=== PATIENT | male | born 1980 | race Caucasian/White ===

== ENCOUNTER 2017-03-17 19:10 | Emergency (ER) | payer SELFPAY ==
[2016-04-05 16:50] VITALS: BMI 27.3
[~2017-03-17 19:10] MED LIST: BACTRIM DS TABL1 TAB PO; CYCLOBENZAPRINE10 MG PO; HYDROCODONE-APA1 TAB PO; PERCOCET 10/3251 TA1 PO
== END 2017-03-17 22:36 | disposition home or self-care (01) ==
LOC: D.ER 19:10
DX: S81.012A Laceration without foreign body, left knee, initial encounter (principal); V09.20XA Pedestrian injured in traffic accident involving unspecified motor vehicles, initial encounter

== ENCOUNTER 2017-03-26 08:46 | Emergency (ER) | payer SELFPAY ==
[2016-04-05 16:50] VITALS: BMI 27.3
== END 2017-03-26 10:48 | disposition home or self-care (01) ==
LOC: D.ER 08:46
DX: S39.012A Strain of muscle, fascia and tendon of lower back, initial encounter (principal); X58.XXXA Exposure to other specified factors, initial encounter; Y93.89 Activity, other specified; Y92.89 Other specified places as the place of occurrence of the external cause

== ENCOUNTER 2018-11-25 20:57 | Emergency (ER) | payer MEDICAID ==
[~2018-11-25] VITALS: Ht 175.3 cm; Wt 90.9 kg
[2018-11-25 20:59] VITALS: Ht 175.3 cm; Wt 90.9 kg
[2018-11-25] MEDS ORDERED: DILANTIN100 MG (21:05)
[2018-11-25] MEDS ORDERED: BP MED (21:05)
[2018-11-25 21:50] LABS: BASOPHILS 0.3 % (0-2); EOSINOPHILS 0.3 % (0-7); HEMOGLOBIN 14.4 g/dL (13.5-17.5); IMMATURE GRANULOCYTES 0.8 % (0-5); LYMPHOCYTES 33.7 % (15-50); MCH 29.1 pg (26.0-34.0); MCHC 34.3 g/dL (31.0-37.0); MONOCYTES 6.8 % (2-11); NEUTROPHILS 58.1 % (40-80); PLATELET COUNT 184 10x3/uL (130-400); RBC 4.94 10x6/uL (4.20-6.10); RDW 14.2 % (11.5-14.5); WBC 6.2 10x3/uL (4.8-10.8)
[2018-11-25 22:01] LABS: APPEARANCE CLEAR (CLEAR); BILIRUBIN NEGATIVE (NEGATIVE); COLOR STRAW (YELLOW); GLUCOSE NEGATIVE (NEGATIVE); KETONE NEGATIVE (NEGATIVE); NITRITE NEGATIVE (NEGATIVE); PROTEIN NEGATIVE (NEGATIVE); SPECIFIC GRAVITY 1.005 (1.005-1.020); UROBILINOGEN NORMAL (NORMAL)
[2018-11-25 22:06] LABS: UDS - AMPHET NEGATIVE QUAL (NEGATIVE); UDS - BARB NEGATIVE QUAL (NEGATIVE); UDS - BENZO NEGATIVE QUAL (NEGATIVE); UDS - COCAINE NEGATIVE QUAL (NEGATIVE); UDS - OPIATE NEGATIVE QUAL (NEGATIVE); UDS - PCP NEGATIVE QUAL (NEGATIVE); UDS - THC NEGATIVE QUAL (NEGATIVE)
[2018-11-25 22:15] LABS: ALBUMIN 3.8 g/dL (3.4-5.0); ALKALINE PHOSPHATASE 84 U/L (46-116); ALT (SGPT) 26 U/L (10-68); BILIRUBIN - TOTAL 0.16 mg/dL (0.2-1.3); CALC OSMOLALITY 281 mosm/kg (275-300); CALCIUM 8.6 mg/dL (8.5-10.1); CARBON DIOXIDE 30.5 mmol/L (21.0-32.0); CHLORIDE - SERUM 105 mmol/L (98-107); CREATININE - SERUM 1.1 mg/dL (0.6-1.3); GLUCOSE 96 mg/dL (74-106); MAGNESIUM - SERUM 2.3 mg/dL (1.8-2.4); POTASSIUM - SERUM 4.4 mmol/L (3.5-5.1); PROTEIN - SERUM 8.1 g/dL (6.4-8.2); SODIUM 142 mmol/L (136-145); UREA NITROGEN 9 mg/dL (7-18); eGFR NON AFRICAN AMERICAN 80 mL/min (90-120)
[2018-11-25 22:18] LABS: PHENYTOIN (DILANTIN) < 10.0 ug/mL (10.0-20.0)
[2018-11-26 01:00] VITALS: BP 130/70
== END 2018-11-26 01:00 | disposition home or self-care (01) ==
LOC: D.ER 20:57
PROVIDERS: Family Medicine
DX: G40.909 Epilepsy, unspecified, not intractable, without status epilepticus (principal); S00.219A Abrasion of unspecified eyelid and periocular area, initial encounter; W18.30XA Fall on same level, unspecified, initial encounter; Y93.89 Activity, other specified; Y92.89 Other specified places as the place of occurrence of the external cause; Z72.89 Other problems related to lifestyle; R51 Headache; Z91.14 Patient's other noncompliance with medication regimen

== ENCOUNTER 2019-08-07 05:08 | Day surgery (SDC) | payer OTHER ==
[~2019-08-07] VITALS: Ht 177.8 cm; Wt 108.9 kg
[~2019-08-07 05:08] MED LIST changes: +ABILIFY10 MG PO; +BP MED; +DILANTIN100 MG; +GEODON40 MG PO; +KLONOPIN1 MG; +NORVASC10 MG PO; +PRINIVIL10 MG PO; +SEROQUEL400 MG PO; +TEGRETOL200 MG PO; +TOFRANIL50 MG PO
[2019-08-07 06:11] LABS: HEMATOCRIT 38.9 % (42.0-54.0); HEMOGLOBIN 13.2 g/dL (13.5-17.5); MCH 30.1 pg (26.0-34.0); MCHC 33.9 g/dL (31.0-37.0); MCV 88.8 fL (80.0-100.0); MEAN PLATELET VOLUME 9.8 fL (7.4-10.4); RBC 4.38 10x6/uL (4.20-6.10); RDW 12.6 % (11.5-14.5)
[2019-08-07 06:48] VITALS: BP 131/78; Ht 177.8 cm; Wt 108.9 kg
--- NOTE | 2019-08-07 09:30 | NUR ---
PATIENT DELAY GOING TO THE ROOM 10 MINUTES DUE TO ARM BAND AND ALLERGY BAND BEING PLACED ON OPERATIVE ARM. SHAKE TABLE OPERATOR REMOVED AND REPOSITIONED ARMABANDS TO NONOPERATIVE ARM. MARÍA ELENA ROBERTS RN NURSE RESTAURANT RECRUITER NOTIFIED.
[2019-08-07] MEDS ORDERED: DILAUDID4 MG PO (09:31)
--- NOTE | 2019-08-07 10:18 | NUR ---
MEETS ANESTHESIA DISCHARGE CRITERIA
--- NOTE | 2019-08-07 10:43 | NUR ---
1030-REC'D FROM RR. DROWSY, EASILY AROUSED WITH VERBAL STIMULI. REPORTS PAIN WITH SLURRED/DROWSY LIKE SPEECH 05/10; HOWEVER NO FACILA GRIMICING, PT IS NOT FULLY AWAKE FROM SUREGERY AT THIS TIME. VSS. FAMMILY AT BEDSIDE. CL IN EASY REACH. ICE PACK TO SHOULDER AND RIGHT EXTREMITY ELEVATED ON PILLOW. CAP REFILL WNL, SKIN WARM AND DRY, ABLE TO WIGGLE DIGITS, REPORTS "IS NUMB"
--- NOTE | 2019-08-07 10:45 | NUR ---
1040-FULL LIQUID TRAY TO ROOM. PT IS AWAKE AND ALERT.CL IN EASY REACH WITH FAMILY AT BEDSIDE.
--- NOTE | 2019-08-07 11:18 | NUR ---
1115-NOTIFIED ANESTHESIA WITH PAIN 05/10 WITH OBVIOUS FACIAL GRIMICING AT THIS TIME AND ELEVATED BLOOD PRESSURE. SEE VITAL SIGNS. AWAKE AND ALERT. TOLERATED FULL LIQUID TRAY. CL IN EASY REACH,FAMILY AT BEDSIDE
--- NOTE | 2019-08-07 11:19 | NUR ---
NO NEW T.O ORDERS PER ANESTHESIA. WILL NOTIFY VINCE TO COME ASSESS PT
--- NOTE | 2019-08-07 11:52 | NUR ---
1152-SPOKE WITH ANESTHESIA, CELSA, NEW ORDER REC'D TO ADMINISTER LABETOLOL 5MG IVP.
--- NOTE | 2019-08-07 15:35 | NUR ---
1245-NOTIFIED DR. DAWKINS OF PTS BLOOD PRESSURE CONTINUE TO BE ELEVATED AFTER LEBETALOL 5MG IVP AND PT CONTINUE TO VERBALIZE PAIN OF 8/10 TO SHOULDER. MARIZA WILL COME TO ASSESS PT.
--- NOTE | 2019-08-07 17:18 | NUR ---
1430-DISCHARGE CRITERIA MET. VSS. IV REMOVED FROM LEFT HAND WITH CATH INTACT, DISPOSED INTO SHARPS. COVERED SITE WITH BANDAID. REVIEWED POST OPERATIVE INSTRUCTIONS WITH PT. VERBALIZED UNDERSTANDING.SLING TO RIGHT ARM INTACT,DRESSING CDI. CAP REFILL WNL,ABLE TO WIGGLE DIGITS. WARM TO TOUCH. ESCORTED OUT VIA W/C WITH MOTHER AWAITING TO DRIVE HOME.
--- NOTE | 2019-08-19 15:11 | OP ---
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 POSTOPERATIVE DIAGNOSIS: Irreparable rotator cuff tear of the right shoulder. PROCEDURE: Right shoulder open superior capsular reconstruction (open rotator cuff repair with allograft replacement). SURGEON: Darnell Rudolph MD DIGITAL MEDIA PLANNER: Olayinka Stack INTRAOPERATIVE COMPLICATIONS: None. SUMMARY OF PATHOLOGIC FINDINGS: Consistent with the preoperative diagnosis, the patient had the rotator cuff tear that had been repaired multiple times and failed. The supraspinatus tendon had retracted beyond irreparable fashion. Therefore, the superior capsular reconstruction technique was deployed with allograft. OPERATIVE SUMMARY IN DETAIL: After obtaining the appropriate preoperative orthopedic surgery consent as well as anesthetic consultation, evaluation and clearance, the patient was brought to the operating room and placed on the operating table in supine position. After adequate general laryngeal mask airway was administered, the patient was placed in the beach chair position. All pressure points were well padded. He was held firmly to the operating table using the vacuum pack suction system. Right upper extremity and shoulder were then prepped and draped in routine sterile fashion. The arm was held in the Trimano arm holding device. Incision was made from the acromioclavicular joint anterolaterally across the anterior aspect of the shoulder and the acromion in keeping with the anterolateral approach. This was taken down and a subperiosteal cuff was taken off the acromioclavicular joint as well as the anterior aspect of the acromion. The deltoid was retracted revealing a large rotator cuff. At this point, a sagittal saw was utilized to perform an acromioplasty as well as a distal clavicle excision with distal clavicle of 1 cm being taken out. Direct visualization of the superior glenoid as well as the lateral aspect of the rotator cuff was visualized. The bur was then utilized to debride the lateral aspect of the supraspinatus tendinous footprint of the supraspinatus tendon as well as the superior aspect of the acromion. Three suture tacks were then placed in the acromion at the 10 o'clock, 12 o'clock and 2 o'clock position. Measurements were taken and a precut dermal graft was then parachuted into the incision with tying the graft into the acromion in keeping with superior capsular reconstruction technique none open. The shoulder was then held at approximately 30 degrees of abduction and 30 degrees of forward flexion while the graft was reapproximated to the greater tuberosity that had been decorticated. The greater tuberosity graft was held down with a double row technique. The anterior aspect of the graft was then reapproximated to the subscapularis. The posterior aspect of the graft was reapproximated to the infraspinatus tendon. This resulted in excellent overall humeral head coverage. OPERATIVE REPORT [id number] ZEKELesterBETH WEST Wound was copiously irrigated in multiple points during the procedure. Having completed the FCR, the deltoid was reapproximated to the acromion using a [id number] suture to reapproximate the deltoid, the superior aspect of the acromion. The residual of the wound was closed by Olayinka Stack using #1 Vicryl, 2-0 Vicryl and skin vin. Sterile dressings were applied. The patient was awakened and taken to recovery room in stable condition. All final needle and sponge counts were correct. TRANSINT:[id number] Voice Confirmation ID: [id number] DOCUMENT ID: [id number] KLAUDIA JOHNSON, DARNELL YOU at 1511 CC: [id number] DICTATION DATE: 08/19/19817 REMOTE PILOT OPERATOR: 08/19/19 0949 [facility] 08/07/19 [id number] [place] [address]
== END 2019-08-07 14:30 | disposition home or self-care (01) ==
LOC: D.OPS 05:08 → D.PAN 07:30 → D.OPS 14:30
PROVIDERS: Anesthesiology; ATTEND Orthopaedic Surgery
DX: M75.101 Unspecified rotator cuff tear or rupture of right shoulder, not specified as traumatic (principal)

== ENCOUNTER → 2019-10-20 13:59 | Outpatient (CLI) | payer OTHER ==
[2019-08-07 06:48] VITALS: BMI 34.5
[~2019-10-20 13:59] MED LIST changes: +DILAUDID4 MG PO
== END | disposition home or self-care (01) ==
LOC: D.MRI 13:59
PROVIDERS: ATTEND Clinical Nurse Specialist Family Health
DX: M25.511 Pain in right shoulder (principal)